=== PATIENT | female | born 1970 | race Caucasian/White ===

== ENCOUNTER → 2022-03-31 | Day surgery (SDC) | payer OTHER ==
[~2022-03-31] VITALS: Ht 160 cm; Wt 63.5 kg
[~2022-03-31] MED LIST: ENERGY PO; EVENING PRIMRO500 M1 PO; GLUCOSAMINE &1 EACH PO; LOVAZA1 GM PO; ROSUVASTATIN CA10 MG PO; TRULICITY0.75 MG/0. SC; [UNRECOGNIZED DRUG - OTHER] PO; [UNRECOGNIZED DRUG - OTHER] PO
== END | disposition home or self-care (01) ==
LOC: FAS 12:58
DX: Z12.11 Encounter for screening for malignant neoplasm of colon (principal); E78.5 Hyperlipidemia, unspecified; F41.9 Anxiety disorder, unspecified; Z88.5 Allergy status to narcotic agent; Z88.0 Allergy status to penicillin; Z79.899 Other long term (current) drug therapy
CPT/HCPCS: J2250; J2704; J7120